=== PATIENT | female | born 1965 | race Caucasian/White ===

== ENCOUNTER 2022-05-25 19:29 | Emergency (ER) | payer OTHER ==
[~2022-05-25] VITALS: Ht 170.2 cm; Wt 109.1 kg
[2022-05-25 19:37] VITALS: TEMP 98.7
[2022-05-25 20:14] LABS: BASO # 0.1 K/mm3 (0.0-0.2); BASO % 0.8 % (0.0-2.0); EOS # 0.2 K/mm3 (0.0-0.7); EOS % 2.4 % (0.0-4.0); GRAN # 3.8 K/mm3 (1.4-6.5); GRAN % 46.1 % (42.2-75.2); HEMATOCRIT 40.1 % (37.0-47.0); HEMOGLOBIN 13.7 g/dl (12.5-16.0); LYMPH # 3.5 K/mm3 (1.2-3.4); LYMPH % 42.1 % (20.0-51.0); MEAN CELL VOLUME 86 fl (80.0-100.0); MEAN CORPUSCULAR HEMOGLOBIN 30 pg (27-31); MEAN CORPUSCULAR HGB CONC 34 g/dl (33.0-37.0); MEAN PLATELET VOLUME 10.3 fl (7.4-10.4); MONO # 0.7 K/mm3 (0.1-0.6); MONO % 8.4 % (1.7-9.3); PLATELET COUNT 243 K/mm3 (130-400); RED BLOOD COUNT 4.65 M/mm3 (4.10-5.30); REDCELL DISTRIBUTION WIDTH-CV 12.2 % (11.5-14.5)
[2022-05-25 20:16] LABS: ALANINE AMINOTRANSFERASE 20 U/L (0-55); ALKALINE PHOSPHATASE 97 U/L (40-150); ANION GAP 12 mmol/L (7-16); AST,SGOT 17 U/L (5-34); BILIRUBIN,TOTAL 0.7 mg/dL (0.2-1.2); BLOOD UREA NITROGEN 11 mg/dL (10-20); CALCIUM 9.3 mg/dL (8.4-10.2); CARBON DIOXIDE 23 mmol/L (22-29); CHLORIDE 106 mmol/L (98-107); CREATININE, serum 0.86 mg/dL (0.57-1.11); GLUCOSE 105 mg/dL (70-99); POTASSIUM 3.7 mmol/L (3.5-4.5); SODIUM 141 mmol/L (136-145); TOTAL PROTEIN 7.9 gm/dL (6.2-8.1)
[2022-05-25 20:23] LABS: TROPONIN-I < 0.010 ng/mL (0.00-0.033)
[2022-05-25 23:31] VITALS: BP 130/61; PULSE 80
== END 2022-05-25 23:33 | disposition home or self-care (01) ==
LOC: COL.ER 19:29
PROVIDERS: Emergency Medicine
DX: R07.9 Chest pain, unspecified (principal); R79.1 Abnormal coagulation profile

== ENCOUNTER → 2023-04-29 | Outpatient (CLI) | payer BC, OTHER | LOC: MC.RAD 09:50 | DX: N63.12 Unspecified lump in the right breast, upper inner quadrant (principal) ==

== ENCOUNTER → 2024-04-23 | Outpatient (CLI) | payer BC | LOC: MC.RAD 11:34 | DX: Z12.31 Encounter for screening mammogram for malignant neoplasm of breast (principal) ==